=== PATIENT | male | born 1985 | race African-American/Black ===

== ENCOUNTER 2017-08-15 05:20 | Day surgery (SDC) | payer SELFPAY ==
[2017-08-15] VITALS (11 sets, daily range): BP systolic 107–139; BP diastolic 59–98
[~2017-08-15] VITALS: Ht 182.9 cm; Wt 117.9 kg
[~2017-08-15 05:20] MED LIST: CEPH500C PO
[2017-08-15] MEDS ORDERED: NITROGLYCERIN 0.4 MG SL TABS BTL 25'S SL ONE (05:29)
[2017-08-15] MEDS ORDERED: NITROGLYCERIN 0.4 MG SL TABS BTL 25'S SL PRN (05:30)
[2017-08-15] MEDS ORDERED: ASPIRIN 81 MG CHEW (CHILDREN'S ASA) ONE (05:30)
[2017-08-15] MEDS ORDERED: LORazepam INJ 2 MG/ML (ATIVAN) VIAL IVP ONE (05:30)
[2017-08-15] MEDS ORDERED: LORazepam INJ 2 MG/ML (ATIVAN) VIAL ONE (05:30)
[2017-08-15] MEDS ORDERED: ASPIRIN 81 MG CHEW (CHILDREN'S ASA) PO ONE (05:30)
[2017-08-15 05:43] LABS: BASOPHILS # (AUTO) 0.1 10^3/uL (0.0-0.1); BASOPHILS % (AUTO) 0 % (0-10); EOSINOPHILS # (AUTO) 0.2 10^3/uL (0.0-0.3); EOSINOPHILS % (AUTO) 1 % (0-10); HEMATOCRIT 48 % (40-54); HEMOGLOBIN 16.5 G/DL (13.3-17.7); LYMPHOCYTES # (AUTO) 2.1 X 10^3 (1.0-4.0); LYMPHOCYTES % (AUTO) 17 % (12-44); MEAN CORPUSCULAR HEMOGLOBIN 33 PG (25-34); MEAN CORPUSCULAR HGB CONC 35 G/DL (32-36); MEAN CORPUSCULAR VOLUME 96 FL (80-99); MEAN PLATELET VOLUME 9.6 FL (7.4-10.4); MONOCYTES # (AUTO) 0.9 X 10^3 (0.0-1.0); MONOCYTES % (AUTO) 7 % (0-12); NEUTROPHILS # (AUTO) 9.1 X 10^3 (1.8-7.8); NEUTROPHILS % (AUTO) 74 % (42-75); PLATELET COUNT 352 10^3/uL (130-400); RED BLOOD COUNT 4.98 10^6/uL (4.35-5.85); RED CELL DISTRIBUTION WIDTH 13.7 % (10.0-14.5); WHITE BLOOD COUNT 12.4 10^3/uL (4.3-11.0)
[2017-08-15 05:52] LABS: BILIRUBIN,URINE NEGATIVE (NEGATIVE); CLARITY,URINE CLEAR; COLOR,URINE YELLOW; GLUCOSE, URINE (UA) NEGATIVE (NEGATIVE); KETONES,URINE NEGATIVE (NEGATIVE); LEUKOCYTE ESTERASE ,URINE 1+ (NEGATIVE); NITRITE,URINE NEGATIVE (NEGATIVE); PH,URINE 6 (5-9); PROTEIN,URINE 1+ (NEGATIVE); UROBILINOGEN,URINE 1 MG/DL (NORMAL)
[2017-08-15] MEDS ORDERED: HEParin 1000 UNIT/ML (10ML VIAL) FOR BOLUS ONE ×3 (05:53→06:21)
[2017-08-15] MEDS ORDERED: meTOprolol 5 MG/5 ML (LOPRESSOR) VIAL ONE (05:53)
[2017-08-15] MEDS ORDERED: HEParin DRIP 25000 UNIT/500ML 500 ML IV ONE ×2 (05:54→06:01)
[2017-08-15] MEDS ORDERED: CLOPIDOGREL 300 MG (PLAVIX) TABLET PO ONE ×2 (05:54→06:15)
[2017-08-15 05:58] LABS: PROTHROMBIN TIME PATIENT 13.6 SEC (12.2-14.7)
[2017-08-15 05:59] LABS: BACTERIA,URINE TRACE /HPF; RBC,URINE 0-2 /HPF; SQUAMOUS EPITHELIAL CELL,UR RARE /HPF
[2017-08-15] MEDS ORDERED: HEParin 1000 UNIT/ML (10ML VIAL) FOR BOLUS IV ONE (06:01)
[2017-08-15 06:05] LABS: ALANINE AMINOTRANSFERASE 28 U/L (0-55); ALBUMIN 3.9 GM/DL (3.2-4.5); ALKALINE PHOSPHATASE 95 U/L (40-136); AMYLASE 56 U/L (25-125); BILIRUBIN,TOTAL 0.7 MG/DL (0.1-1.0); BUN/CREATININE RATIO 5; CALCIUM 9.7 MG/DL (8.5-10.1); CARBON DIOXIDE 21 MMOL/L (21-32); CHLORIDE 105 MMOL/L (98-107); CREATINE KINASE 302 U/L (30-200); CREATININE SERUM 1.06 MG/DL (0.60-1.30); GFR ESTIMATED > 60; GLUCOSE 150 MG/DL (70-105); LIPASE 12 U/L (8-78); MAGNESIUM 2.2 MG/DL (1.8-2.4); POTASSIUM 3.5 MMOL/L (3.6-5.0); SODIUM 138 MMOL/L (135-145); TOTAL PROTEIN 8.2 GM/DL (6.4-8.2)
[2017-08-15] MEDS ORDERED: morphine INJ 10 MG/ML 1ML (SYR OR VIAL) ONE (06:05)
--- NOTE | 2017-08-15 06:05 | ED Chest Pain ---
General Chief Complaint: Chest Pain Stated Complaint: STEMI Source: patient Exam Limitations: no limitations History of Present Illness Date Seen by Provider: August 15, 2017 Time Seen by Provider: 05:21 Initial Comments PT ARRIVES VIA POV FROM HOME C/O MID CHEST PAIN RADIATING DOWN LEFT ARM SINCE 1800 LAST PM--RATES PAIN 10/10 + SHORTNESS OF BREATH + SWEATS + NAUSEA, NO VOMITING NO SWELLING IN LEGS/ FEET OR PAIN IN CALVES. NO RECENT TRAVEL/PROLONGED SITTING , ETC. PT HAD SUBJECTIVE FEVER AND NON-PRODUCTIVE COUGH FOR A COUPLE OF DAYS LAST WEEK. DID NOT SEEK CARE AND SYMPTOMS RESOLVED SEVERAL DAYS AGO. NO HISTORY OF SIMILAR PT STATES HAS FAMILY HISTORY OF SEVERAL MALES ON FATHER'S SIDE "DROPPING FROM HEART ATTACKS" IN THEIR 40'S OR YOUNGER, BUT HIS PARENTS THEMSELVES DO NOT HAVE HISTORY OF HEART PROBLEMS. PT DOES DRINK HEAVY AT TIMES--HAD A PINT OF LIQUOR YESTERDAY ADMITS TO OCCASIONAL THC USE, BUT DENIES RECENT USE, AND ADAMANTLY DENIES ANY OTHER DRUG USE PT DENIES ANY HISTORY OF CIGARETTE SMOKING DENIES ANY PMH OF ANY KIND NO Allergies and Home Medications Allergies Coded Allergies: No Known Drug Allergies (Unverified , 10/24/10) Home Medications Cephalexin Monohydrate 500 Mg Capsule, 1 EACH PO QID Prescribed by: MIGUEL ANGEL SANTA on 12/19/10 0028 Patient Home Medication List Home Medication List Reviewed: Yes Review of Systems Constitutional: see HPI, diaphoresis, dizziness EENTM: No Symptoms Reported Respiratory: See HPI, Shortness of Air, SOA With Exertion, SOA at Rest Cardiovascular: See HPI, Chest Pain; Denies Edema, Denies Irregular Heart Rate ; Lightheadedness; Denies Palpitations, Denies Syncope Gastrointestinal: See HPI; Denies Abdominal Pain; Nausea; Denies Vomiting Genitourinary: No Symptoms Reported Musculoskeletal: see HPI Skin: no symptoms reported Psychiatric/Neurological: No Symptoms Reported Endocrine: No Symptoms Reported Hematologic/Lymphatic: No Symptoms Reported Past Uehnwtd-Xysbjc-Eknllw Hx Patient Social History Alcohol Use: Regular Use (USE TO DRINK HEAVY EVERY DAY, NOW STILL DRINKS HEAVY AT TIMES BUT NOT DAILY) Recreational Drug Use: Yes (ADMITS TO THC USE ONLY, BUT TESTED + FOR PCP ON ) Smoking Status: Never a Smoker Recent Foreign Travel: No Contact w/Someone Who Travel: No Past Medical History Surgeries: No Respiratory: No Cardiac: No Neurological: No Genitourinary: No Gastrointestinal: No Musculoskeletal: No Endocrine: No HEENT: No Cancer: No Psychosocial: No Integumentary: No Blood Disorders: No Physical Exam Vital Signs Vital Signs - First Documented 08/15/17 05:20 Temp 98.6 Pulse 112 Resp 18 B/P (MAP) 151/96 (114) Pulse Ox 98 O2 Delivery Nasal Cannula O2 Flow Rate 2.0 FiO2 100 Capillary Refill : General Appearance: Anxious, Mild Distress, Other (LOOKS UNCOMFORTABLE, MILD HYPERVENTILATION. ) HEENT: PERRL/EOMI Neck: Full Range of Motion, Normal Inspection, Non Tender, Supple; No Carotid Bruit, No JVD Respiratory: Normal Breath Sounds, No Accessory Muscle Use, Respiratory Distress (MILD --BREATHING LABORED, HYPERVENTILATING) Cardiovascular: No Edema, No JVD, No Murmur, Normal Peripheral Pulses, Tachycardia Gastrointestinal: Normal Bowel Sounds, No Organomegaly, No Pulsatile Mass, Non Tender, Soft Extremity: Normal Range of Motion, Non Tender, No Calf Tenderness, No Pedal Edema Neurologic/Psychiatric: Alert, Oriented x3, No Motor/Sensory Deficits, pediatric np II- XII Norm as Tested Skin: Normal Color, Warm/Dry, Tattoos/Piercings (MULTIPLE TATTOOS) Progress/Results/Core Measures Results/Orders Lab Results Laboratory Tests Test 08/15/17 05:27 08/15/17 05:41 Range/Units White Blood Count 12.4 H 4.3-11.0 10^3/uL Red Blood Count 4.98 4.35-5.85 10^6/uL Hemoglobin 16.5 13.3-17.7 G/DL Hematocrit 48 40-54 % Mean Corpuscular Volume 96 80-99 FL Mean Corpuscular Hemoglobin 33 25-34 PG Mean Corpuscular Hemoglobin Concent 35 32-36 G/DL Red Cell Distribution Width 13.7 10.0-14.5 % Platelet Count 352 130-400 10^3/uL Mean Platelet Volume 9.6 7.4-10.4 FL Neutrophils (%) (Auto) 74 42-75 % Lymphocytes (%) (Auto) 17 12-44 % Monocytes (%) (Auto) 7 0-12 % Eosinophils (%) (Auto) 1 0-10 % Basophils (%) (Auto) 0 0-10 % Neutrophils # (Auto) 9.1 H 1.8-7.8 X 10^3 Lymphocytes # (Auto) 2.1 1.0-4.0 X 10^3 Monocytes # (Auto) 0.9 0.0-1.0 X 10^3 Eosinophils # (Auto) 0.2 0.0-0.3 10^3/uL Basophils # (Auto) 0.1 0.0-0.1 10^3/uL Prothrombin Time 13.6 12.2-14.7 SEC INR Comment 1.0 0.8-1.4 Activated Partial Thromboplast Time 32 24-35 SEC Sodium Level 138 135-145 MMOL/L Potassium Level 3.5 L 3.6-5.0 MMOL/L Chloride Level 105 98-107 MMOL/L Carbon Dioxide Level 21 21-32 MMOL/L Anion Gap 12 5-14 MMOL/L Blood Urea Nitrogen 5 L 7-18 MG/DL Creatinine 1.06 0.60-1.30 MG/DL Estimat Glomerular Filtration Rate > 60 BUN/Creatinine Ratio 5 Glucose Level 150 H 70-105 MG/DL Calcium Level 9.7 8.5-10.1 MG/DL Magnesium Level 2.2 1.8-2.4 MG/DL Total Bilirubin 0.7 0.1-1.0 MG/DL Aspartate Amino Transf (AST/SGOT) 21 5-34 U/L Alanine Aminotransferase (ALT/SGPT) 28 0-55 U/L Alkaline Phosphatase 95 40-136 U/L Total Creatine Kinase 302 H 30-200 U/L Creatine Kinase MB 1.0 <6.6 NG/ML Troponin I < 0.30 <0.30 NG/ML Total Protein 8.2 6.4-8.2 GM/DL Albumin 3.9 3.2-4.5 GM/DL Amylase Level 56 25-125 U/L Lipase 12 8-78 U/L Serum Alcohol < 10 <10 MG/DL Urine Color YELLOW Urine Clarity CLEAR Urine pH 6 5-9 Urine Specific [place] 1.025 H 1.016-1.022 Urine Protein 1+ H NEGATIVE Urine Glucose (UA) NEGATIVE NEGATIVE Urine Ketones NEGATIVE NEGATIVE Urine Nitrite NEGATIVE NEGATIVE Urine Bilirubin NEGATIVE NEGATIVE Urine Urobilinogen 1 NORMAL MG/DL Urine Leukocyte Esterase 1+ H NEGATIVE Urine RBC (Auto) 4+ H NEGATIVE Urine RBC 0-2 /HPF Urine WBC 2-5 /HPF Urine Squamous Epithelial Cells RARE /HPF Urine Crystals NONE /LPF Urine Bacteria TRACE /HPF Urine Casts NONE /LPF Urine Mucus LARGE H /LPF Urine Culture Indicated NO Urine Opiates Screen NEGATIVE NEGATIVE Urine Oxycodone Screen NEGATIVE NEGATIVE Urine Methadone Screen NEGATIVE NEGATIVE Urine Propoxyphene Screen NEGATIVE NEGATIVE Urine Barbiturates Screen NEGATIVE NEGATIVE Ur Tricyclic Antidepressants Screen NEGATIVE NEGATIVE Urine Phencyclidine Screen POSITIVE H NEGATIVE Urine Amphetamines Screen NEGATIVE NEGATIVE Urine Methamphetamines Screen NEGATIVE NEGATIVE Urine Benzodiazepines Screen NEGATIVE NEGATIVE Urine Cocaine Screen NEGATIVE NEGATIVE Urine Cannabinoids Screen NEGATIVE NEGATIVE My Orders Orders - LORENZO TOMLIN K DO Amylase (08/15/17 05:28) Cbc With Automated Diff (08/15/17 05:28) Comprehensive Metabolic Panel (08/15/17 05:28) Creatine Kinase (08/15/17 05:28) Creatine Kinase Mb (08/15/17 05:28) Lipase (08/15/17 05:28) Partial Thromboplastin Time (08/15/17 05:28) Protime With Inr (08/15/17 05:28) Troponin I (08/15/17 05:28) Chest 1 View, Ap/Pa Only (08/15/17 05:28) O2 (08/15/17 05:28) Ekg Tracing (08/15/17 05:28) Aspirin Chewable Tablet (Baby Aspirin Ch (08/15/17 05:30) BNP (08/15/17 05:28) Monitor-Rhythm Ecg Trace Only (08/15/17 05:28) Alcohol (08/15/17 05:28) Drug Screen Stat (Urine) (08/15/17 05:28) Magnesium (08/15/17 05:28) Ua Culture If Indicated (08/15/17 05:28) Lorazepam Injection (Ativan Injection) (08/15/17 05:30) Nitroglycerin 0.4 Mg Btl 25's (Nitrostat (08/15/17 05:30) Nitroglycerin 0.4 Mg Btl 25's (Nitrostat (08/15/17 05:29) Aspirin Chewable Tablet (Baby Aspirin Ch (08/15/17 05:30) Lorazepam Injection (Ativan Injection) (08/15/17 05:30) Metoprolol Tartrate Injection (Lopressor (08/15/17 05:53) Heparin (Bolus Per Protocol) (Heparin (B (08/15/17 05:53) Heparin Drip 49636 Unit/500ml (Heparin (08/15/17 05:54) Clopidogrel Tablet (Plavix Tablet) (08/15/17 05:54) Medications Given in ED Current Medications Medications Dose Ordered Sig/Luanne Route Start Time Stop Time Status Last Admin Dose Admin Aspirin 324 mg ONCE ONCE PO 08/15/17 05:30 08/15/17 05:34 DC 08/15/17 05:44 324 MG Clopidogrel Bisulfate 300 mg STK-MED ONCE PO 08/15/17 05:54 08/15/17 05:58 DC 08/15/17 06:02 300 MG Heparin Sodium (Porcine) 10,000 unit STK-MED ONCE .ROUTE 08/15/17 05:55 08/15/17 06:00 DC 08/15/17 06:03 5,000 UNIT Heparin Sodium/ Dextrose 500 ml @ ud STK-MED ONCE IV 08/15/17 05:54 08/15/17 05:58 DC 08/15/17 06:04 1,000 MLS/HR Lorazepam 1 mg ONCE ONCE IVP 08/15/17 05:30 08/15/17 05:34 DC 08/15/17 05:44 1 MG Metoprolol Tartrate 5 mg STK-MED ONCE .ROUTE 08/15/17 05:53 08/15/17 05:58 DC 08/15/17 06:04 5 MG Nitroglycerin 1 TAB Q 5 MIN X 3 NEEDED PRN SL 08/15/17 05:30 08/15/17 05:44 0.4 MG Vital Signs/I&O 08/15/17 08/15/17 08/15/17 05:20 05:20 05:20 Temp 98.6 Pulse 112 Resp 18 B/P (MAP) 151/96 (114) Pulse Ox 98 99 O2 Delivery Nasal Cannula Nasal Cannula Nasal Cannula O2 Flow Rate 2.0 2.00 FiO2 100 Progress Progress Note : Progress Note GIVEN ATIVAN WHICH EASED ANXIETY GIVEN ASPIRIN AND NTG X 3--PAIN DOWN TO 6-7/10 PT GIVEN MORPHINE AND PAIN STILL 6/10 Initial ECG Impression Date: August 15, 2017 Initial ECG Impression Time: 05:29 Initial ECG Rate: 105 Initial ECG Rhythm: S.Tach Initial ECG Impression: Acute NC (ANTERIOR LEADS) Initial ECG Comparisson: No Previous ECG Available EKG : EKG Time: 05:42 Rate: 101 Rhythm: S.Tach ECG Impression: Acute NC (ANTERIOR LEADS) Comment EKG#3 AT 0547--RATE 114. SINUS TACH. STEMI ANTERIOR LEADS Departure Communication (Admissions) 0542/0544--PAGED/SPOKE WITH DR TREVIZO. WILL TEXT HIM PICTURES OF PT'S EKG'S AND HE WILL CALL BACK 0550--SPOKE WITH DR. TREVIZO, HE AGREES THAT EKG IS SUSPICIOUS FOR STEMI AND ADVISES TO CALL IN [facility]. [employer] NOTIFIED 0622--DR. TREVIZO HERE, CARE TURNED OVER TO HIM 0635--PT TO [facility] Impression Primary Impression: STEMI (ST elevation myocardial infarction) Additional Impressions: Giant rugal gastritis Illicit drug use Disposition: ADMITTED INPATIENT (TO [facility]) Condition: Improved (ERASED) Admissions Decision to Admit Reason: Admit from ER (General) (TO [facility]) Decision to Admit/Date: August 15, 2017 Time/Decision to Admit Time: 05:50 Departure-Patient Inst. Referrals: NO,LOCAL PHYSICIAN (PCP/Family) Primary Care Physician LORENZO TOMLIN DO August 15, 2017 06:05
[2017-08-15 06:07] LABS: AMPHETAMINE SCREEN, URINE NEGATIVE (NEGATIVE); BARBITURATE SCREEN URINE NEGATIVE (NEGATIVE); BENZODIAZEPINES SCREEN URINE NEGATIVE (NEGATIVE); CANNABINOID SCREEN, URINE NEGATIVE (NEGATIVE); COCAINE SCREEN URINE NEGATIVE (NEGATIVE); METHADONE STAT NEGATIVE (NEGATIVE); METHAMPHETAMINE SCREEN URINE S NEGATIVE (NEGATIVE); OPIATE SCREEN URINE NEGATIVE (NEGATIVE); OXYCODONE STAT NEGATIVE (NEGATIVE); PROPOXYPHENE STAT NEGATIVE (NEGATIVE); TRICYCLIC ANTIDEPRESSANTS SCRE NEGATIVE (NEGATIVE)
[2017-08-15] MEDS ORDERED: meTOprolol 5 MG/5 ML (LOPRESSOR) VIAL IV ONE (06:15)
[2017-08-15] MEDS ORDERED: morphine INJ 10 MG/ML 1ML (SYR OR VIAL) IVP STA (06:20)
[2017-08-15] MEDS ORDERED: diphenhydrAMINE 50 MG/ML INJ (BENADRYL) ONE (06:21)
[2017-08-15] MEDS ORDERED: fentaNYL INJECTION 100 MCG/2 ML AMP ONE (06:21)
[2017-08-15] MEDS ORDERED: MIDAZOLAM 5 MG/5 ML (VERSED) VIAL ONE (06:21)
[2017-08-15] MEDS ORDERED: LIDOCAINE 1% INJ 20 ML 20 ML VIAL ONE (06:21)
[2017-08-15] MEDS ORDERED: NS IV 1000 ML 2,000 ML ONE (06:21)
[2017-08-15] MEDS ORDERED: NITRO DRIP 25000 MCG/D5W 250 ML IV ONE (06:22)
[2017-08-15] MEDS ORDERED: NS IV 1000 ML 1,000 ML ONE (06:33)
--- NOTE | 2017-08-15 06:33 | Cardiology History & Physical ---
HPI-Cardiology Cardiology H&P Date of Admission Primary Care Physician Yael,Local Physician Attending Physician Codi Elam MD MA FACP [facility] Consulting Physician DANNA 32 yo man with a few hours of chest pain: L parasternal and upper midsternal, assoc'd with palp, mod to severe, pressure-like, w/o palp or syncope, never experienced before, still ongoing, somewhat better after NTG and bb. Notes some shortness of breath Review of Systems-Cardiology Review of Systems Constitutional: No weight loss, No weight gain Eyes: No vision change Ears/Nose/Throat: No ear discharge, No nasal drainage, No recent hearing loss Cardiovascular: As described under HPI Gastrointestinal: No constipation, No diarrhea, No nausea, No vomiting, No stool coloration changes Genitourinary: No dysuria, No hematuria, No urine frequency changes Musculoskeletal: No back pain, No joint pain Skin: No rash, No ulcerations Psychiatric/Neurological: No seizure, No focal weakness, No syncope Hematologic: No bleeding abnormalities PVF-Vamcvh-Zpfrbj Hx Patient Social History Alcohol Use: Occasionally Uses Recreational Drug Use: Yes (THC) Smoking Status: Current Everyday Smoker Recent Foreign Travel: No Recent Infectious Disease Expo: No Past Medical History PMH As described under Assessment. Family Medical History Family Medical History: Notes fam h/o SCD in 2nd deg relatives Allergies and Home Medications Allergies Coded Allergies: No Known Drug Allergies (Unverified , 10/24/10) Home Medications Cephalexin Monohydrate 500 Mg Capsule, 1 EACH PO QID Prescribed by: MIGUEL ANGEL SANTA on 12/19/10 0028 Patient Home Medication List Home Medication List Reviewed: Yes Physical Exam-Cardiology Physical Exam Vital Signs/I&O 08/15/17 08/15/17 08/15/17 05:20 05:20 05:20 Temp 98.6 Pulse 112 Resp 18 B/P (MAP) 151/96 (114) Pulse Ox 98 99 O2 Delivery Nasal Cannula Nasal Cannula Nasal Cannula O2 Flow Rate 2.0 2.00 FiO2 100 Capillary Refill : Less Than 3 Seconds Constitutional: AAO x 3, well-developed, well-nourished HEENT: hearing is well preserved; No xanthelasmas are seen Neck: No carotid bruit; carotid pulses are 2 + bilaterally Respiratory: No accessory muscle use; lungs clear to percussion, lungs clear to auscultation Cardiovascular: regular rate-rhythm, S1 and S2, systolic murmur (soft GLEN at card base) Gastrointestinal: No tender; soft; No guarding, No rebound; audible bowel sounds Extremities: No clubbing, No cyanosis, No significant edema Neurologic/Psychiatric: oriented x 3, grossly intact, power is 5/5 both on sides Skin: No rash on exposed areas, No ulcerations on exposed areas Data Review Labs Laboratory Tests 08/15/17 05:27: White Blood Count 12.4H, Red Blood Count 4.98, Hemoglobin 16.5, Hematocrit 48, Mean Corpuscular Volume 96, Mean Corpuscular Hemoglobin 33, Mean Corpuscular Hemoglobin Concent 35, Red Cell Distribution Width 13.7, Platelet Count 352, Mean Platelet Volume 9.6, Neutrophils (%) (Auto) 74, Lymphocytes (%) (Auto) 17, Monocytes (%) (Auto) 7, Eosinophils (%) (Auto) 1, Basophils (%) (Auto) 0, Neutrophils # (Auto) 9.1H, Lymphocytes # (Auto) 2.1, Monocytes # (Auto) 0.9, Eosinophils # (Auto) 0.2, Basophils # (Auto) 0.1, Prothrombin Time 13.6, INR Comment 1.0, Activated Partial Thromboplast Time 32, Sodium Level 138, Potassium Level 3.5L, Chloride Level 105, Carbon Dioxide Level 21, Anion Gap 12 , Blood Urea Nitrogen 5L, Creatinine 1.06, Estimat Glomerular Filtration Rate > 60, BUN/Creatinine Ratio 5, Glucose Level 150H, Calcium Level 9.7, Magnesium Level 2.2, Total Bilirubin 0.7, Aspartate Amino Transf (AST/SGOT) 21, Alanine Aminotransferase (ALT/SGPT) 28, Alkaline Phosphatase 95, Total Creatine Kinase 302H, Creatine Kinase MB 1.0, Troponin I < 0.30, Total Protein 8.2, Albumin 3.9 , Amylase Level 56, Lipase 12, Serum Alcohol < 10 08/15/17 05:41: Urine Color YELLOW, Urine Clarity CLEAR, Urine pH 6, Urine Specific [place] 1.025H, Urine Protein 1+H, Urine Glucose (UA) NEGATIVE, Urine Ketones NEGATIVE, Urine Nitrite NEGATIVE, Urine Bilirubin NEGATIVE, Urine Urobilinogen 1, Urine Leukocyte Esterase 1+H, Urine RBC (Auto) 4+H, Urine RBC 0-2, Urine WBC 2-5, Urine Squamous Epithelial Cells RARE, Urine Crystals NONE, Urine Bacteria TRACE , Urine Casts NONE, Urine Mucus LARGEH, Urine Culture Indicated NO, Urine Opiates Screen NEGATIVE, Urine Oxycodone Screen NEGATIVE, Urine Methadone Screen NEGATIVE, Urine Propoxyphene Screen NEGATIVE, Urine Barbiturates Screen NEGATIVE, Ur Tricyclic Antidepressants Screen NEGATIVE, Urine Phencyclidine Screen POSITIVEH, Urine Amphetamines Screen NEGATIVE, Urine Methamphetamines Screen NEGATIVE, Urine Benzodiazepines Screen NEGATIVE, Urine Cocaine Screen NEGATIVE, Urine Cannabinoids Screen NEGATIVE Laboratory Tests 08/15/17 05:27 A/P-Cardiology Assessment/Admission Diagnosis Suspected acute ant wall STEMI Chronic tobacco use Admission Status: Inpatient Order (span 2 midnights) Reason for Inpatient Admission: Suspected STEMI Discussion and Recomendations * Given ongoing symptoms in the presence of ECG that suggests STEMI, emergency cath is advised. The rationale, procedure, risks, benefits, potential complications and alternatives of cath and possible ad hoc cor intervention reviewed. He provides informed consent * Has been treated with ASA, clopidogrel, bb, and heparin Clinical Quality Measures AMI/AHF: ASA po Prior to arrival: Yes CODI ELAM MD FACP FACC CCDS August 15, 2017 06:33
[2017-08-15] MEDS ORDERED: NS IV 1000 ML 1,000 ML IV SCH (07:01)
[2017-08-15] MEDS ORDERED: PATIENT MAY USE OWN MEDS, ALL PO SCH (07:15)
--- NOTE | 2017-08-15 07:46 | Diagnostic Imaging Report ---
INDICATION: Chest pain and left arm pain. FINDINGS: Heart size is normal. There is some patchy bibasilar atelectasis and/or pneumonitis. There is no pleural effusion or pneumothorax. Mediastinum is unremarkable. IMPRESSION: Patchy bibasilar atelectasis and/or pneumonitis. Dictated by: Dictated on workstation # [id number]
[2017-08-15] MEDS ORDERED: KCL 20 MEQ TAB (K-DUR) PO NR (08:07)
--- NOTE | 2017-08-15 08:08 | CARDIAC CATHETERIZATION ---
DATE OF SERVICE: 08/15/2017 CARDIAC CATHETERIZATION REPORT The patient is a 32-year-old man who has a history of tobacco use and a relatively strong family history of heart attacks. He presented with chest pain with ST elevation in the anterolateral leads. Emergency cardiac catheterization was carried out because of suspicion of acute ST elevation myocardial infarction. Informed consent was obtained. PROCEDURE: He was brought to the cardiac catheterization laboratory in a fasting state. Right groin was prepared and draped in usual sterile fashion. Lidocaine 1% with local anesthesia. Modified Seldinger technique was used to advance a 5-[place]ian sheath right femoral artery, 6-[place]ian sheath into the left femoral artery. A 6-[place]ian JL4 catheter was used for left coronary angiography. A 6-[place]ian JR4 catheter was used for right coronary angiography. A 6-[place]ian pigtail catheter used for left heart catheterization and left ventricular angiography. A 6-[place]ian pigtail catheter was then pulled back to the aortic arch and aortic arch angiography was performed. At the end of the procedure, angiography right femoral artery was carried out. The sheath and Mynx was used to achieve hemostasis following sheath removal. He tolerated the procedure well. HEMODYNAMICS: Left ventricular end-diastolic pressure following coronary angiography was 9 mmHg. There was no significant pressure gradient on pullback across the aortic valve. Ascending aortic pressure was 109/80 with a mean of 94 mmHg. LEFT VENTRICULAR ANGIOGRAPHY: Left ventricular angiography was carried out in the right anterior oblique projection. Global left ventricular systolic function is within normal limits. No distinct regional wall motion abnormalities were seen. Left ventricular ejection fraction approximately 55%. There does not appear to be significant mitral regurgitation. CORONARY ANGIOGRAPHY: Left main coronary artery, left anterior descending artery, left circumflex artery, right coronary artery are all free of any angiographically significant disease. Flow is somewhat sluggish to all coronary vessels. The right coronary artery is dominant. CONCLUSIONS: 1. No angiographically significant obstructive coronary artery disease. Coronary flow is somewhat sluggish in all coronary vessels. Right coronary artery is dominant. Global left ventricular systolic function is well preserved. Left ventricular ejection fraction is approximately 55%. 2. Normal left ventricular end-diastolic pressure. 3. No significant mitral regurgitation. DISCUSSION AND RECOMMENDATIONS: Based on results of the study, it appears appropriate to continue a conservative approach. Risk factor modification has been reviewed. He has been advised to quit smoking immediately and completely. We are requesting consultation with the hospitalist service for evaluation for noncardiac chest discomfort. Job ID: [id number] DocumentID: [id number] Dictated Date: 08/15/2017 07:16:10 [employer]phalt [employer]ender Date: 08/15/2017 08:07:34 Dictated By: SARITA TREVIZO MD, MA, FACP, FACC, MTDD
[2017-08-15] MEDS ORDERED: IBUP-30 PO (08:47)
--- NOTE | 2017-08-15 10:58 | Consultation-Hospitalist ---
HPI History of Present Illness: HPI/Chief Complaint CC: Chest pain HPI: This is a 32-year-old -Japanese male with no local physician who has been in excellent health all of his life except he does have a profound early onset heart disease in the family who presented to the ER with ST changes on EKG with complaints of chest pain and shortness of breath he was taken to cardiac catheterization by Dr. Elam which revealed no stenotic coronary vessels but he is being transferred to the fourth floor maintained on telemetry checking echocardiogram to fully evaluate his complaints. I was consulted to evaluate the pleuritic chest pain of noncardiac origin. I did review the chest x-ray that reveals on the final read of scattered infiltrates and he is a smoker and this could be pleuritic chest pain so I will go ahead and cover with clarithromycin 500 mg by mouth 1 now and daily initiate nebulizer treatments and incentive spirometer along with very low dose Solu-Medrol to decrease inflammation of the lungs and hyperreactivity due to presumed COPD from smoking. I reviewed the urine drug screen from the ER and he is positive for PCP which could be a factor and all of this and considering the very limited history he provided me and not really forthcoming with any details and his family at the bedside I did not aggressively pursue that in case he became irate because it appears that he could have violent tendencies. Source: patient, family, RN/MD Exam Limitations: no limitations Date Seen 08/15/17 Attending Physician Codi Elam MD Facp Facc Ccds PCP No,Local Physician Referring Physician Date of Admission Home Medications & Allergies Home Medications Reviewed patient Home Medication Reconciliation performed by pharmacy medication reconciliations surgical scrub technician and/or nursing. Patients Allergies have been reviewed. Allergies Allergies Coded Allergies No Known Drug Allergies (Unverified10/24/10) Past Vcgcpqe-Wauhef-Kvthus Hx Past Med/Social Hx: Reviewed Nursing Past Med/Soc Hx, Reviewed and Corrections made Patient Social History Marrital Status: single Employed/Student: unemployed Alcohol Use: Regular Use (USE TO DRINK HEAVY EVERY DAY, NOW STILL DRINKS HEAVY AT TIMES BUT NOT DAILY) Alcohol Beverage of Choice: Beer, Whiskey, Other Recreational Drug Use: Yes (ADMITS TO THC USE ONLY, BUT TESTED + FOR PCP ON ) Smoking Status: Current Everyday Smoker Recent Foreign Travel: No Contact w/other who traveled: No Recent Infectious Disease Expo: No Past Medical History History of Blood Disorders: No Family History Heart Disease, CAD Under 55 Years Old Review of Systems Constitutional: see HPI EENTM: no symptoms reported Respiratory: dyspnea on exertion, short of breath Cardiovascular: chest pain Gastrointestinal: no symptoms reported Genitourinary: no symptoms reported Musculoskeletal: no symptoms reported Skin: no symptoms reported Psychiatric/Neurological: No Symptoms Reported All Other Systems Reviewed Negative Unless Noted: Yes Physical Exam Physical Exam Vital Signs Vital Signs - First Documented 08/15/17 05:20 Temp 98.6 Pulse 112 Resp 18 B/P (MAP) 151/96 (114) Pulse Ox 98 O2 Delivery Nasal Cannula O2 Flow Rate 2.0 FiO2 100 Capillary Refill : Less Than 3 Seconds General Appearance: No Apparent Distress, WD/WN, Chronically ill Eyes: Bilateral Eye Normal Inspection, Bilateral Eye PERRL HEENT: PERRL/EOMI, Normal ENT Inspection, Pharynx Normal Neck: Full Range of Motion, Normal Inspection, Non Tender, Supple, Carotid Bruit Respiratory: Chest Non Tender, Lungs Clear, Normal Breath Sounds, No Accessory Muscle Use, No Respiratory Distress Cardiovascular: Regular Rate, Rhythm, No Edema, No Gallop, No JVD, No Murmur, Normal Peripheral Pulses Gastrointestinal: Normal Bowel Sounds, No Organomegaly, No Pulsatile Mass, Non Tender, Soft Back: Normal Inspection, No CVA Tenderness, No Vertebral Tenderness Extremity: Normal Capillary Refill, Normal Inspection, Normal Range of Motion, Non Tender, No Calf Tenderness, No Pedal Edema Neurologic/Psychiatric: Alert, Oriented x3, No Motor/Sensory Deficits, Normal Mood/Affect Skin: Normal Color, Warm/Dry Lymphatic: No Adenopathy Results Results/Procedures Labs Laboratory Tests 08/15/17 05:27 Patient resulted labs reviewed. Assessment/Plan Assessment and Plan Assess & Plan/Chief Complaint Assessment: Chest pain with ST changes with normal cardiac catheterization PCP on urine drug screen Smoker Scattered infiltrates consistent with pneumonia of atypical-type placing on Zithromax and nebulizer treatments along with Solu-Medrol and incentive spirometer Obesity Plan: Zmax Nebs IS Solumedrol Diagnosis/Problems Diagnosis/Problems (1) Chest pain Status: Acute Qualifiers: Chest pain type: other chest pain Qualified Codes: R07.89 - Other chest pain (2) Atypical pneumonia Status: Acute (3) Smoker Status: Chronic (4) Obesity (BMI 30-39.9) Status: Chronic (5) Alcohol abuse Status: Chronic (6) Illicit drug use Status: Chronic Clinical Quality Measures AMI/AHF: ASA po Prior to arrival: Yes ROBERT SOTELO DO August 15, 2017 10:58
[2017-08-15] MEDS ORDERED: RT-ALBUTEROL/IPRATROPIUM 3 ML (DUONEB) VIAL INH NR (11:00)
[2017-08-15] MEDS ORDERED: AZITHROMYCIN 250 MG TAB (ZITHROMAX) PO NR (11:00)
[2017-08-15] MEDS ORDERED: methylPREDNISolone 40 MG/ML (Solu-MEDROL) VIAL IV NR (11:00)
[2017-08-15] MEDS: RT-ALBUTEROL/IPRATROPIUM 3 ML (DUONEB) VIAL INH SCH ×3 (17:15→21:59)
[2017-08-15] MEDS: methylPREDNISolone 40 MG/ML (Solu-MEDROL) VIAL IV SCH (20:26)
[2017-08-16 00:39] VITALS: BP 120/61
[2017-08-16] MEDS: RT-ALBUTEROL/IPRATROPIUM 3 ML (DUONEB) VIAL INH SCH ×2 (01:38→06:45)
[2017-08-16 04:45] VITALS: BP 125/58
[2017-08-16 06:43] LABS: BASOPHILS % (AUTO) 0 % (0-10); EOSINOPHILS % (AUTO) 0 % (0-10); HEMATOCRIT 44 % (40-54); HEMOGLOBIN 15.1 G/DL (13.3-17.7); LYMPHOCYTES # (AUTO) 0.9 X 10^3 (1.0-4.0); LYMPHOCYTES % (AUTO) 6 % (12-44); MEAN CORPUSCULAR HEMOGLOBIN 33 PG (25-34); MEAN CORPUSCULAR HGB CONC 35 G/DL (32-36); MEAN CORPUSCULAR VOLUME 97 FL (80-99); MEAN PLATELET VOLUME 9.8 FL (7.4-10.4); MONOCYTES % (AUTO) 7 % (0-12); NEUTROPHILS # (AUTO) 13.7 X 10^3 (1.8-7.8); NEUTROPHILS % (AUTO) 88 % (42-75); PLATELET COUNT 359 10^3/uL (130-400); RED BLOOD COUNT 4.52 10^6/uL (4.35-5.85); RED CELL DISTRIBUTION WIDTH 13.6 % (10.0-14.5); WHITE BLOOD COUNT 15.6 10^3/uL (4.3-11.0)
[2017-08-16 07:24] LABS: ALANINE AMINOTRANSFERASE 33 U/L (0-55); ALBUMIN 3.5 GM/DL (3.2-4.5); ALKALINE PHOSPHATASE 82 U/L (40-136); BILIRUBIN,TOTAL 0.3 MG/DL (0.1-1.0); BUN/CREATININE RATIO 10; CALCIUM 9.3 MG/DL (8.5-10.1); CARBON DIOXIDE 19 MMOL/L (21-32); CHLORIDE 108 MMOL/L (98-107); CHOLESTEROL 268 MG/DL (< 200); GFR ESTIMATED > 60; GLUCOSE 204 MG/DL (70-105); HDL CHOLESTEROL 28 MG/DL (40-60); POTASSIUM 4.2 MMOL/L (3.6-5.0); SODIUM 136 MMOL/L (135-145); TOTAL PROTEIN 7.6 GM/DL (6.4-8.2); TRIGLYCERIDES 164 MG/DL (<150); VLDL CHOLESTEROL 33 MG/DL (5-40)
[2017-08-16 08:00] VITALS: BP 125/62
[2017-08-16] MEDS ORDERED: AZITHROMYCIN 250 MG TAB (ZITHROMAX) PO SCH (09:00)
[2017-08-16] MEDS ORDERED: ASPIRIN 81 MG CHEW (CHILDREN'S ASA) PO SCH (09:00)
[2017-08-16] MEDS ORDERED: AZIT250T12 PO (09:50)
[2017-08-16] MEDS ORDERED: PRED10TA22 PO (09:50)
[2017-08-16] MEDS: methylPREDNISolone 40 MG/ML (Solu-MEDROL) VIAL IV SCH (09:55)
--- NOTE | 2017-08-16 09:55 | Progress Note-Hospitalist ---
Subjective HPI/CC On Admission Date Seen by Provider: August 16, 2017 Time Seen by Provider: 09:00 CC: Chest pain HPI: This is a 32-year-old -Brazilian male with no local physician who has been in excellent health all of his life except he does have a profound early onset heart disease in the family who presented to the ER with ST changes on EKG with complaints of chest pain and shortness of breath he was taken to cardiac catheterization by Dr. Elam which revealed no stenotic coronary vessels but he is being transferred to the fourth floor maintained on telemetry checking echocardiogram to fully evaluate his complaints. I was consulted to evaluate the pleuritic chest pain of noncardiac origin. I did review the chest x-ray that reveals on the final read of scattered infiltrates and he is a smoker and this could be pleuritic chest pain so I will go ahead and cover with clarithromycin 500 mg by mouth 1 now and daily initiate nebulizer treatments and incentive spirometer along with very low dose Solu-Medrol to decrease inflammation of the lungs and hyperreactivity due to presumed COPD from smoking. I reviewed the urine drug screen from the ER and he is positive for PCP which could be a factor and all of this and considering the very limited history he provided me and not really forthcoming with any details and his family at the bedside I did not aggressively pursue that in case he became irate because it appears that he could have violent tendencies. Subjective/Events-last exam Patient doing well overall and once to go home Discontinue telemetry Dr. Elam has agreed with discharge Pleuritic chest pain is now resolved Smoking cessation discussed Objective Exam Vital Signs Vital Signs Date Time Temp Pulse Resp B/P (MAP) Pulse Ox O2 Delivery O2 Flow Rate FiO2 08/16/17 08:00 98.9 92 20 125/62 (83) 95 Room Air 08/15/17 07:20 2.00 08/15/17 05:20 100 Capillary Refill : Less Than 3 Seconds General Appearance: No Apparent Distress, Chronically ill Respiratory: Lungs Clear Cardiovascular: Regular Rate, Rhythm, No Edema Neurologic/Psychiatric: Alert, Oriented x3, No Motor/Sensory Deficits, Normal Mood/Affect Results/Procedures Lab Laboratory Tests 08/16/17 06:00 Patient resulted labs reviewed. Assessment/Plan Assessment and Plan Assess & Plan/Chief Complaint Assessment: Chest pain with ST changes with normal cardiac catheterization PCP on urine drug screen Smoker Scattered infiltrates consistent with pneumonia of atypical-type placing on Zithromax and nebulizer treatments along with Solu-Medrol and incentive spirometer Obesity Plan: DC home Diagnosis/Problems Diagnosis/Problems (1) Chest pain Status: Acute Qualifiers: Chest pain type: other chest pain Qualified Codes: R07.89 - Other chest pain (2) Atypical pneumonia Status: Acute (3) Smoker Status: Chronic (4) Obesity (BMI 30-39.9) Status: Chronic (5) Alcohol abuse Status: Chronic (6) Illicit drug use Status: Chronic Clinical Quality Measures AMI/AHF: ASA po Prior to arrival: Yes ROBERT SOTELO DO August 16, 2017 09:55
--- NOTE | 2017-08-16 10:55 | Progress Note-Cardiology ---
Cardiology SOAP Progress Note Subjective: No cp or palp or syncope. No significant shortness of breath at this time Objective: I&O/Vital Signs 08/16/17 08/16/17 08/16/17 08/16/17 00:39 01:00 01:38 04:45 Temp 98.6 98.4 Pulse 86 81 90 Resp 18 17 B/P (MAP) 120/61 (80) 125/58 (80) Pulse Ox 93 92 97 O2 Delivery Room Air Room Air Room Air 08/16/17 08/16/17 08/16/17 08/16/17 06:45 07:00 08:00 08:00 Temp 98.9 Pulse 106 92 Resp 20 B/P (MAP) 125/62 (83) Pulse Ox 95 95 O2 Delivery Room Air Room Air Room Air 08/16/17 00:00 Intake Total 1300 ml Output Total 600 ml Balance 700 ml Weight (Pounds): 260 Weight (Calculated Kilograms): 117.682163 Constitutional: AAO x 3, well-developed, well-nourished Respiratory: No accessory muscle use; lungs clear to percussion, lungs clear to auscultation Cardiovascular: regular rate-rhythm, S1 and S2, systolic murmur (soft GLEN at card base) Gastrointestional: No tender; soft; No guarding, No rebound; audible bowel sounds Extremities: No clubbing, No cyanosis, No significant edema Neurologic/Psychiatric: oriented x 3, grossly intact, power is 5/5 both on sides Skin: No rash on exposed areas, No ulcerations on exposed areas Results/Procedures: Labs Laboratory Tests 08/16/17 06:00: White Blood Count 15.6H, Red Blood Count 4.52, Hemoglobin 15.1, Hematocrit 44, Mean Corpuscular Volume 97, Mean Corpuscular Hemoglobin 33, Mean Corpuscular Hemoglobin Concent 35, Red Cell Distribution Width 13.6, Platelet Count 359, Mean Platelet Volume 9.8, Neutrophils (%) (Auto) 88H, Lymphocytes (%) (Auto) 6L , Monocytes (%) (Auto) 7, Eosinophils (%) (Auto) 0, Basophils (%) (Auto) 0, Neutrophils # (Auto) 13.7H, Lymphocytes # (Auto) 0.9L, Monocytes # (Auto) 1.0, Eosinophils # (Auto) 0.0, Basophils # (Auto) 0.0, Sodium Level 136, Potassium Level 4.2, Chloride Level 108H, Carbon Dioxide Level 19L, Anion Gap 9, Blood Urea Nitrogen 9, Creatinine 0.90, Estimat Glomerular Filtration Rate > 60, BUN/ Creatinine Ratio 10, Glucose Level 204H, Calcium Level 9.3, Total Bilirubin 0.3 , Aspartate Amino Transf (AST/SGOT) 23, Alanine Aminotransferase (ALT/SGPT) 33, Alkaline Phosphatase 82, Total Protein 7.6, Albumin 3.5, Triglycerides Level 164H, Cholesterol Level 268H, LDL Cholesterol Direct 210H, VLDL Cholesterol 33, HDL Cholesterol 28L, Thyroid Stimulating Hormone (TSH) 0.19L Laboratory Tests 08/15/17 05:27 08/16/17 06:00 A/P: Assessment: Chest pain, noncardiac, etiology undetermined Card cath on 08/15/17: No angiographically significant obstructive coronary artery disease. Coronary flow is somewhat sluggish in all coronary vessels. Right coronary artery is dominant. Global left ventricular systolic function is well preserved. Left ventricular ejection fraction is approximately 55%. Normal left ventricular end-diastolic pressure. No significant mitral regurgitation Atypical pneumonia treated with azithromycin by Dr Martínez (pt has tolerated it well) Leucocytosis today, likely due to the steroid use by Dr Martínez during this hospitalization Obesity with BMI approx 35 Chronic tobacco use Plan: I discussed the findings of his card cath with him and his I discussed his medical issues with Dr Martínez We have advised him to quit smoking immediately and completely and to avoid all street drug use We have advised him of his risk of DM, given his elevated BMI. We have advised efforts at wgt loss We have advised outpatient f/u Clinical Quality Measures AMI/AHF: ASA po Prior to arrival: Yes SARITA TREVIZO MD FACP FAC CCDS August 16, 2017 10:55
--- NOTE | 2017-08-16 11:01 | Cardiology Discharge Summary ---
Diagnosis/Chief Complaint Date of Admission 08/15/17 Date of Discharge 08/16/17 Final/Discharge Diagnosis Chest pain, noncardiac, etiology undetermined Card cath on 08/15/17: No angiographically significant obstructive coronary artery disease. Coronary flow is somewhat sluggish in all coronary vessels. Right coronary artery is dominant. Global left ventricular systolic function is well preserved. Left ventricular ejection fraction is approximately 55%. Normal left ventricular end-diastolic pressure. No significant mitral regurgitation Echo of 08/16/17: LVEF 65-70%, normal PASP, mild concentric LVH Atypical pneumonia treated with azithromycin by Dr Martínez (pt has tolerated it well) Leucocytosis today, likely due to the steroid use by Dr Martínez during this hospitalization Obesity with BMI approx 35 Chronic tobacco use Chief Complaint/HPI Chief Complaint/HPI 32 yo man with a few hours of chest pain: L parasternal and upper midsternal, assoc'd with palp, mod to severe, pressure-like, w/o palp or syncope, never experienced before, still ongoing, somewhat better after NTG and bb. Notes some shortness of breath For hospital course and condition at discharge, please see the progress note of today's date Discharge Summary Procedures Card cath on 08/15/17; echo on 08/16/17 Hospital Course Pending Labs Laboratory Tests 08/16/17 06:00: White Blood Count 15.6, Red Blood Count 4.52, Hemoglobin 15.1, Hematocrit 44, Mean Corpuscular Volume 97, Mean Corpuscular Hemoglobin 33, Mean Corpuscular Hemoglobin Concent 35, Red Cell Distribution Width 13.6, Platelet Count 359, Mean Platelet Volume 9.8, Neutrophils (%) (Auto) 88, Lymphocytes (%) (Auto) 6, Monocytes (%) (Auto) 7, Eosinophils (%) (Auto) 0, Basophils (%) (Auto) 0, Neutrophils # (Auto) 13.7, Lymphocytes # (Auto) 0.9, Monocytes # (Auto) 1.0, Eosinophils # (Auto) 0.0, Basophils # (Auto) 0.0, Sodium Level 136, Potassium Level 4.2, Chloride Level 108, Carbon Dioxide Level 19, Anion Gap 9, Blood Urea Nitrogen 9, Creatinine 0.90, Estimat Glomerular Filtration Rate > 60, BUN/ Creatinine Ratio 10, Glucose Level 204, Calcium Level 9.3, Total Bilirubin 0.3, Aspartate Amino Transf (AST/SGOT) 23, Alanine Aminotransferase (ALT/SGPT) 33, Alkaline Phosphatase 82, Total Protein 7.6, Albumin 3.5, Triglycerides Level 164 , Cholesterol Level 268, LDL Cholesterol Direct 210, VLDL Cholesterol 33, HDL Cholesterol 28, Thyroid Stimulating Hormone (TSH) 0.19 Discussion & Recommendations Home Medications Reviewed patient Home Medication Reconciliation performed by pharmacy medication reconciliations dental technician metal and/or nursing. Patients Allergies have been reviewed. Discharge Home Medications: Reviewed and agree with Discharge Medication list on patient's Discharge Instruction sheet Clinical Quality Measures AMI/AHF: ASA po Prior to arrival: Yes SARITA TREVIZO MD FACP FACC CCDS August 16, 2017 11:01
[2017-08-16] MEDS ORDERED: ASPI-999 PO (11:02)
--- NOTE | 2017-08-16 11:03 | Discharge Inst-Post CATH ---
Discharge Inst-CATH Post Cardiac Cath D/C Inst Follow Up/Plan F/u with Dr Elam next week CARDIAC CATH DISCHARGE INSTRUCTIONS *Hold Metformin for 48 hours post heart cath. ACTIVITY * Go Home directly and rest. * Limit activity of the leg (or wrist if it was used) for 7 days including aerobics, swimming, jogging, bicycling, etc. * Restrict stair-climbing for 7 days if possible, if not, climb up with your non -cath leg, then bring together on the same step. * Avoid lifting, pushing, pulling or excessive movement of the affected extremity for 7 days. * Customary sexual activity may be resumed after 2 days-use caution not to use a position that strains or causes pain to the affected extremity. * No driving for 24 hours. * NO SMOKING. * Avoid straining for bowel movements for 7 days. * Gentle walking on level ground is allowed. * Returning to work will depend on the type of procedure and the results. Your doctor will discuss this with you. CALL YOUR DOCTOR FOR ANY OF THE FOLLOWING: *If bleeding from the puncture site occurs- Apply gentle pressure to site with clean cloth and call your doctor or EMS. * If a knot or lump forms under the skin, increases in size, or causes pain. * If bruising appears to be worsening or moving further down your leg instead of disappearing. * Temperature above 101 F. CARE OF YOUR GROIN INCISION; * Bruising or purple discoloration of the skin near the puncture site is common. * You may shower only, no bathtub bathing for 5 days. Be careful to avoid slipping as your leg may feel stiff. * If a closure device was used on your femoral artery, please see the attached guide regarding care of the device and your leg. * REMOVE the dressing from your groin the next day after your procedure in the shower. CARE OF YOUR WRIST INCISION; * Bruising or purple discoloration of the skin near the puncture site is common. * You may shower. * DO NOT submerge wrist. * Remove dressing in 24 hours. SARITA ELAM MD FACP FAC CCDS August 16, 2017 11:03
--- NOTE | 2017-08-16 11:03 | Discharge Inst-Cardiology ---
Discharge Inst-Cardiac Discharge Medications New Medications: Aspirin (Aspirin) 81 Mg Tab.chew 81 MG PO DAILY, #90 TAB 3 Refills Prednisone (Prednisone) 10 Mg Tab.ds.pk 10 MG PO BID, #6 EACH Azithromycin (Azithromycin) 250 Mg Tablet 500 MG PO DAILY, #3 TAB Continued Medications: Ibuprofen (Advil) 200 Mg Tablet 400 MG PO Q8H PRN for PAIN-MILD, TAB (This prescription has been renewed) SARITA TREVIZO MD FACP FACC CCDS August 16, 2017 11:03
== END 2017-08-16 11:08 | disposition home or self-care (01) ==
LOC: EDUNIT# 05:20 → ER 05:23 → CATH 05:59 → ICU 07:15 → 4TH 10:35 → CATH 08-16 11:08 → 4TH 08-16 11:08
PROVIDERS: ATTEND Internal Medicine Cardiovascular Disease
DX: R07.89 Other chest pain (principal); J18.9 Pneumonia, unspecified organism; F12.90 Cannabis use, unspecified, uncomplicated; F16.90 Hallucinogen use, unspecified, uncomplicated; F10.10 Alcohol abuse, uncomplicated; F17.210 Nicotine dependence, cigarettes, uncomplicated; E66.9 Obesity, unspecified; Z68.35 Body mass index [BMI] 35.0-35.9, adult
CPT/HCPCS: 36415; 71045; 80053; 80061; 80306; 80320; 81000; 82150; 82550; 82553; 83690; 83735; 83880; 84443; 84484; 85025; 85610; 85730; 93005; 93041; 93306; 94640; 94664; 94760; 96365; 96375